=== PATIENT | female | born 1970 | race Caucasian/White ===

== ENCOUNTER 2020-10-28 05:00 | Emergency (ER) | payer MEDICARE ==
[~2020-10-28 05:00] MED LIST: K-DUR TAB 10 M10 MEQ PO
[2020-10-28 06:46] LABS: HEMOGLOBIN 12.5 gm/dl (12.3-15.3); RED BLOOD COUNT 5.15 M/UL (4.00-5.10); WHITE BLOOD COUNT 7.7 K/UL (4.5-11.0)
== END 2020-10-28 07:37 | disposition home or self-care (01) ==
LOC: ER1 05:00
PROVIDERS: Student in an Organized Health Care Education/Training Program
DX: N93.8 Other specified abnormal uterine and vaginal bleeding (principal); Z90.49 Acquired absence of other specified parts of digestive tract
CPT/HCPCS: 80053; 84702; 85025; 85610; 85730; 86850; 86900; 86901; 99284

== ENCOUNTER → 2021-04-28 | Outpatient (CLI) | payer MEDICARE | LOC: CT 14:30 | DX: R10.11 Right upper quadrant pain (principal) | CPT/HCPCS: 74160; Q9967 ==

== ENCOUNTER 2021-05-10 14:15 | Emergency (ER) | payer MEDICARE ==
[2021-05-10 14:57] LABS: HEMOGLOBIN 11.7 gm/dl (12.3-15.3); RED BLOOD COUNT 4.98 M/UL (4.00-5.10); WHITE BLOOD COUNT 7.3 K/UL (4.5-11.0)
== END 2021-05-10 17:03 | disposition left against medical advice (07) ==
LOC: ER1 14:15
PROVIDERS: Physician Assistant
DX: R10.9 Unspecified abdominal pain (principal); R10.812 Left upper quadrant abdominal tenderness
CPT/HCPCS: 80053; 83690; 85025; 99283; Q9967

== ENCOUNTER 2021-05-13 13:21 | Emergency (ER) | payer MEDICARE ==
[2021-05-13 14:49] LABS: HEMOGLOBIN 12.2 gm/dl (12.3-15.3); RED BLOOD COUNT 5.26 M/UL (4.00-5.10); WHITE BLOOD COUNT 8.7 K/UL (4.5-11.0)
[2021-05-13 15:16] LABS: BUN/CREATININE RATIO 10 (0-10)
== END 2021-05-13 17:45 | disposition home or self-care (01) ==
LOC: ER1 13:21
PROVIDERS: Emergency Medicine
DX: R07.89 Other chest pain (principal)
CPT/HCPCS: 71045; 80053; 82550; 82553; 84484; 85025; 93005; 99285

== ENCOUNTER 2021-07-25 17:48 | Emergency (ER) | payer MEDICARE ==
[2021-07-25 21:16] LABS: HEMOGLOBIN 12.7 gm/dl (12.3-15.3); RED BLOOD COUNT 5.53 M/UL (4.00-5.10); WHITE BLOOD COUNT 7.5 K/UL (4.5-11.0)
[2021-07-26] MEDS ORDERED: OMNICEF 300 MG300 MG PO (01:00)
== END 2021-07-26 01:40 | disposition home or self-care (01) ==
LOC: ER1 17:48
PROVIDERS: Student in an Organized Health Care Education/Training Program
DX: N39.0 Urinary tract infection, site not specified (principal); Z90.49 Acquired absence of other specified parts of digestive tract
CPT/HCPCS: 80053; 81001; 83690; 85025; 99284; Q9967